=== PATIENT | female | born 1945 | race Caucasian/White ===

== ENCOUNTER 2023-10-12 14:34 | Outpatient (CLI) | payer MEDICARE, SELFPAY ==
--- NOTE | ~2023-10-12 | XR_ITS ---
EXAM: XR hip LT min 2V DATE: 10/12/2023 14:58 HISTORY: LEFT HIP PAIN NON INJ . COMPARISON: None available. FINDINGS: Normal mineralization. No fracture or dislocation. No lytic or blastic lesion. Partially v isualized right hip arthroplasty hardware. Mild degenerative change in the bilateral SI joints and pu bic symphysis. Moderate degenerative change in the left hip. Scattered pelvic enthesopathy. Soft tiss ue calcification over the greater trochanter. No erosion or periosteal change. Multiple surgical clip s over the pelvis. IMPRESSION: Moderate left hip osteoarthritis. Calcific tendinitis over the greater trochanter. Reviewed, dictated and finalized at location K. IMPRESSION: Moderate left hip osteoarthritis. Calcific tendinitis over the grea ter trochanter.
--- NOTE | ~2023-10-12 | XR_ITS ---
3 VIEWS LUMBAR SPINE Ordering provider: Marcus Hampton, History: . LT HIP PAIN NON INJ . Comparison: None. FINDINGS: VERTEBRAL BODIES:Levoscoliosis. Minimal anterolisthesis at the level of L4-L5. Minimal retrolisthesis of the level of L2-L3. Degenerative changes of the spine. No visible fracture. DISK SPACES: Narrowing of the disc T12-L1, L1-L2, L2-L3, L3-L4, L4-L5 and L5-S1. Multilevel facet lana nt disease. SOFT TISSUES: Normal. Right hip arthroplasty. IMPRESSION: No acute osseous abnormality lumbar spine. Reviewed, dictated and finalized at location A.
== END 2023-10-12 14:35 | disposition home or self-care (01) ==
PROVIDERS: PCP Internal Medicine Geriatric Medicine; Visit Provider Internal Medicine Geriatric Medicine
DX: M16.12 Unilateral primary osteoarthritis, left hip (principal); M65.252 Calcific tendinitis, left thigh
CPT/HCPCS: 72100; 73502